=== PATIENT | male | born 1990 | race Caucasian/White ===

== ENCOUNTER → 2016-11-22 | Outpatient (CLI) | payer BC, OTHER ==
--- NOTE | 2016-11-22 09:17 | DIAGNOSTIC IMAGING REPORT ---
RIGHT SHOULDER MIN 2 VIEWS CLINICAL HISTORY: RIGHT SHOULDER PAIN Right COMPARISON: None. DISCUSSION: The bones and joint spaces appear intact. There is no evidence of fracture, dislocation or bony disease. There is no evidence for soft tissue swelling. IMPRESSION: Negative study. Electronically signed by: Sukumar De La Garza M.D. 11/22/2016 9:16 AM Dictated Date/Time: 11/22/2016 9:14 AM
== END | disposition home or self-care (01) ==
LOC: C.RDSM 14:01
PROVIDERS: ATTEND Family Medicine
DX: M25.511 Pain in right shoulder (principal)